=== PATIENT | female | born 1990 | race African-American/Black ===

== ENCOUNTER 2020-11-25 23:11 | Emergency (ER) | payer OTHER ==
[~2020-11-25] VITALS: Ht 165.1 cm; Wt 79.4 kg
[2020-11-26 00:54] LABS: BASOPHILS 0.6 % (0.0-2.0); EOSINOPHILS 3.7 % (0.0-3.0); HEMATOCRIT 38.1 % (37.0-47.0); HEMOGLOBIN 12.4 gm/dL (12.0-15.0); LYMPHOCYTES 26.3 % (24.0-44.0); MCH 26.6 pg (26.0-34.0); MCHC 32.5 g/dL (28.0-37.0); MONOCYTES 7.7 % (1.0-8.0); PLATELET COUNT 384 thou/uL (150-400); POLYS 61.7 % (36.0-66.0); RBC 4.65 mil/uL (4.20-5.00); RDW 15.2 % (10.5-14.5); WBC 8.1 thou/uL (4.0-11.0)
[2020-11-26 00:57] LABS: URINE BILIRUBIN NEGATIVE (Negative); URINE BLOOD NEGATIVE (Negative); URINE CLARITY CLEAR; URINE COLOR YELLOW; URINE GLUCOSE-RANDOM* NEGATIVE (Negative); URINE KETONES 1+ (Negative); URINE LEUKOCYTES-REFLEX NEGATIVE (Negative); URINE NITRITE-REFLEX NEGATIVE (Negative); URINE PROTEIN (DIPSTICK) TRACE (Negative); URINE SPECIFIC GRAVITY >= 1.030 (1.005-1.035); URINE UROBILINOGEN 0.2 E.U./dl (0.2-1.0)
[2020-11-26 01:12] LABS: ANION GAP 11 mmol/L (7-16); BUN 7 mg/dL (7-18); CALCIUM 9.3 mg/dL (8.5-10.1); CHLORIDE 104 mmol/L (98-107); CO2 24 mmol/L (21-32); CREATININE 0.7 mg/dL (0.6-1.0); GLUCOSE 88 mg/dL (74-106); POTASSIUM 3.3 mmol/L (3.5-5.1); SODIUM 139 mmol/L (136-145)
[2020-11-26 01:22] LABS: ALBUMIN 4.6 g/dL (3.4-5.0); LIPASE 65 U/L (73-393); SGOT 20 U/L (15-37); SGPT 26 U/L (14-59); TOTAL BILIRUBIN 0.8 mg/dL (0.2-1.0); TOTAL PROTEIN 8.9 g/dL (6.4-8.2); TROPONIN-I <0.06 ng/mL (<0.06)
[2020-11-26 03:13] VITALS: BP 144/88
--- NOTE | 2020-11-26 10:19 | EKG ---
[place] [address] [facility] [place] [address] ELECTROCARDIOGRAM REPORT Name: TYRA ROBERTSON Room #: [facility] [id number] Admission: 11/25/20 Attend Phys: Discharge: 11/26/20 Date of : [birth year] Report #: [id number] 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1990 Requested By: Mazin Franco Order Number: [id number] MD: Horacio Givens Measurements Intervals [place] Rate: 91 P: 82 VT: 135 QRS: 80 QRSD: 96 T: 66 QT: 363 QTc: 447 Interpretive Statements Sinus rhythm Biatrial enlargement Baseline wander in lead(s) V2 Compared to ECG 12/31/2006 18:14:14 Atrial abnormality now present Sinus tachycardia no longer present Electronically Signed On 11-26-2020 10:19:31 [employer] by Horacio Givens [email or web address] <ELECTRONICALLY SIGNED> By: Horacio Givens MD 11/26/20 1019 16 16 Horacio Givens MD /FREDDY
== END 2020-11-26 03:16 | disposition home or self-care (01) ==
LOC: ER 23:11
PROVIDERS: Emergency Medicine
DX: R07.89 Other chest pain (principal); F19.10 Other psychoactive substance abuse, uncomplicated; R10.13 Epigastric pain; F12.90 Cannabis use, unspecified, uncomplicated; F15.90 Other stimulant use, unspecified, uncomplicated

== ENCOUNTER 2021-01-24 18:44 | Emergency (ER) | payer OTHER ==
[~2021-01-24] VITALS: Ht 165.1 cm; Wt 79.4 kg
[2021-01-24] MEDS ORDERED: ACYCLOVIR 400400 MG (19:26)
[2021-01-24 19:34] LABS: ABSOLUTE NEUTROPHILS 5.9 thou/uL (1.4-8.2); BASOPHILS 0.8 % (0.0-2.0); EOSINOPHILS 0.7 % (0.0-3.0); HEMATOCRIT 36.3 % (37.0-47.0); HEMOGLOBIN 12.1 gm/dL (12.0-15.0); LYMPHOCYTES 17.3 % (24.0-44.0); MCH 26.9 pg (26.0-34.0); MCHC 33.4 g/dL (28.0-37.0); MCV 80.5 fL (80.0-100.0); MONOCYTES 6.9 % (1.0-8.0); PLATELET COUNT 342 thou/uL (150-400); POLYS 74.3 % (36.0-66.0); RBC 4.52 mil/uL (4.20-5.00); RDW 16.9 % (10.5-14.5)
[2021-01-24 19:45] LABS: ANION GAP 11 mmol/L (7-16); BUN 3 mg/dL (7-18); CALCIUM 9.3 mg/dL (8.5-10.1); CHLORIDE 104 mmol/L (98-107); CO2 24 mmol/L (21-32); CREATININE 0.7 mg/dL (0.6-1.0); GLUCOSE 104 mg/dL (74-106); POTASSIUM 3.4 mmol/L (3.5-5.1); SODIUM 139 mmol/L (136-145)
[2021-01-24 19:55] LABS: ALBUMIN 4.5 g/dL (3.4-5.0); SGOT 20 U/L (15-37); SGPT 20 U/L (30-65); TOTAL BILIRUBIN 0.4 mg/dL (0.2-1.0); TOTAL PROTEIN 8.8 g/dL (6.4-8.2); TROPONIN-I <0.06 ng/mL (<0.06)
[2021-01-24 20:28] VITALS: BP 143/98
--- NOTE | 2021-01-25 08:15 | EKG ---
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
== END 2021-01-24 20:30 | disposition home or self-care (01) ==
LOC: ER 18:44
PROVIDERS: Emergency Medicine
DX: R07.9 Chest pain, unspecified (principal); F15.10 Other stimulant abuse, uncomplicated; Z79.899 Other long term (current) drug therapy